=== PATIENT | male | born 2000 | race Caucasian/White ===

== ENCOUNTER 2020-05-19 22:21 | Emergency (ER) | payer OTHER ==
[~2020-05-19] VITALS: Ht 175.3 cm; Wt 86.0 kg
[~2020-05-19 22:21] MED LIST: NO; TYLENOL & COD12.5 ML OR
[2020-05-19] MEDS ORDERED: CEPHALEXIN500 MG PO (23:26)
[2020-05-20 00:11] VITALS: BP 129/63
== END 2020-05-19 23:45 | disposition home or self-care (01) ==
LOC: ED 22:21
DX: L08.9 Local infection of the skin and subcutaneous tissue, unspecified (principal)